=== PATIENT | female | born 1960 | race Caucasian/White ===

== ENCOUNTER → 2017-11-28 | Outpatient (CLI) | payer BC ==
[~2017-11-28] MED LIST: ACET500; ALBU90OI6; ALPR.25; ERGO50000; ESCI10; IBUP800; MULTI VITAMIN1 EACH; ROSU5
[2017-11-30 12:28] LABS: HPV Genotype 16 Not Detected (NOTDET); HPV Genotype 18 Not Detected (NOTDET)
[2017-12-05 13:31] LABS: HPV High Risk Other Not Detected (NOTDET)
== END | disposition home or self-care (01) ==
LOC: OLS 16:05
PROVIDERS: Obstetrics & Gynecology Gynecology
DX: Z12.4 Encounter for screening for malignant neoplasm of cervix (principal)
CPT/HCPCS: 87624; G0123

== ENCOUNTER → 2019-05-07 | Outpatient (CLI) | payer BC ==
[2019-05-09 15:07] LABS: HPV 16 Negative (Negative); HPV 18 Negative (Negative); HPV OTHER HR TYPES Negative (Negative)
== END | disposition home or self-care (01) ==
LOC: LAB SHORT 17:44 → LAB 17:44
PROVIDERS: Obstetrics & Gynecology Gynecology
DX: Z12.4 Encounter for screening for malignant neoplasm of cervix (principal)
CPT/HCPCS: 87624; G0123

== ENCOUNTER 2021-02-05 08:28 | Day surgery (SDC) | payer BC ==
[~2021-02-05] VITALS: Ht 170.2 cm; Wt 97.0 kg
[2021-02-05] MEDS ORDERED: Coq-1030 MG (08:51)
--- NOTE | 2021-02-05 09:03 | NUR ---
02/05/21 0903 SHIVAM ELY ONE ATTEMPT BY ALYCIA IN [place] ONE SUCCESSFUL BY ALYCIA IN [facility] PT TOW
--- NOTE | 2021-02-05 10:57 | NUR ---
02/05/21 1057 Margo Luevano DOCUMENTATION COMPLETED BY [email or web address]
== END 2021-02-05 10:57 | disposition home or self-care (01) ==
LOC: ORSCSDS 08:28
PROVIDERS: Internal Medicine Gastroenterology
PROC: 0DJD8ZZ Inspection of Lower Intestinal Tract, Via Natural or Artificial Opening Endoscopic (ICD-10-PCS; principal; 2021-02-05 09:45)
DX: Z12.11 Encounter for screening for malignant neoplasm of colon (principal); Z86.010 Personal history of colon polyps; K57.30 Diverticulosis of large intestine without perforation or abscess without bleeding; G47.30 Sleep apnea, unspecified; E66.9 Obesity, unspecified; Z68.33 Body mass index [BMI] 33.0-33.9, adult; Z79.899 Other long term (current) drug therapy
CPT/HCPCS: J2405; J2704; J7120

== ENCOUNTER 2023-06-13 06:40 | Day surgery (SDC) | payer MEDICARE, BC ==
[~2023-06-13] VITALS: Ht 170.2 cm; Wt 98.8 kg
[2023-06-13] VITALS (14 sets, daily range): BP systolic 109–154; BP diastolic 67–87
[~2023-06-13 06:40] MED LIST changes: +ALBU90OI INH; +Coq-1030 MG; +Crestor40 MG PO; +ESCI10 PO; +IBUP800 PO
--- NOTE | 2023-06-13 11:34 | NUR ---
PT ARRIVED TO THE ROOM AT 1125. PT ALERT AND ORIENTED. SHE DENIES PAIN. DECREASED SENSATION AND MOVEMENT TO BLE R/T SPINAL ANESTHESIA. PT TOLERATING PO AT THIS TIME.
--- NOTE | 2023-06-13 17:44 | NUR ---
SHIFT SUMMARY PT IS POD#0 FROM [facility] FLOR WITH DR. FRANCOIS. PAIN MANAGED WITH TYLENOL, TORADOL AND OXY. PT WAS ABLE TO WORK WITH THERAPY AND SHE WAS ABLE TO STAND AT THE EDGE OF BED. PT'S SPINAL ANESTHESIA IS SLOW TO WEAR OFF, SHE IS REGAINING SENSATION AND STRENGTH TO HER LOWER EXTREMITIES BUT WAS STILL WEAK WHEN WORKING WITH THERAPY. PT IS TOLERATING PO. SHE HAS BEEN ABLE TO VOID. PT IS RESTING IN BED, CALL LIGHT WITHIN REACH.
[2023-06-14 03:37] VITALS: BP 126/67
[2023-06-14 05:03] LABS: BASOPHILS ABSOLUTE AUTO 0.01 K/mm3 (0.00-0.23); BASOPHILS PERCENT AUTO 0 % (0-2); EOSINOPHILS PERCENT AUTO 0 % (0-6); Hematocrit 29.7 % (33.0-51.0); Hemoglobin 9.6 g/dL (11.5-16.0); IMMATURE GRAN ABSOLUTE AUTO 0.03 K/mm3 (0.00-0.10); IMMATURE GRAN PERCENT AUTO 0 % (0-1); LYMPHOCYTES ABSOLUTE AUTO 0.82 K/mm3 (0.84-5.20); LYMPHOCYTES PERCENT AUTO 9 % (21-46); MONOCYTES ABSOLUTE AUTO 0.75 K/mm3 (0.16-1.47); MONOCYTES PERCENT AUTO 8 % (4-13); Mean Corpuscular HGB 31.2 pg (26.0-34.0); Mean Corpuscular HGB Conc 32.3 g/dL (31.5-36.5); Mean Corpuscular Volume 96 fL (80-100); NEUTROPHILS PERCENT AUTO 82 % (41-73); Platelet Count 212 K/mm3 (150-400); RDW Coefficient Variation 13.3 % (11.7-14.2); RDW Standard Deviation 47.1 fL (35.1-46.3); Red Blood Cell Count 3.08 M/mm3 (3.80-5.20); White Blood Cell Count 9.01 K/mm3 (4.00-11.30)
[2023-06-14 05:35] LABS: Bun/Creatinine Ratio 21.8 (12.0-20.0); Calcium, Blood 8.9 mg/dL (8.5-10.1); Creatinine, Blood 0.69 mg/dL (0.40-1.00); Potassium, Blood 4.1 mmol/L (3.5-5.5)
--- NOTE | 2023-06-14 05:41 | NUR ---
SHIFT SUMMARY S/P L FLOR. RONELEL IS C/D/I. ICE IN PLACE AND LALITO HOSE ON. PATIENT IS AOX4. UP WITH 1 ASSIST, GB, AND FWW. VOIDING WELL. PAIN WELL MANAGED. TOLERATES PO INTAKE. PLAN FOR PT IN THE AM. VSS.
[2023-06-14 07:54] VITALS: BP 129/72
[2023-06-14] MEDS ORDERED: Aspir 8181 MG PO (08:18)
[2023-06-14] MEDS ORDERED: Percocet 5-3251 EACH PO (08:18)
--- NOTE | 2023-06-14 08:51 | NUR ---
DISCHARGE NOTE: PATIENT AND PATIENTS WERE EDUCATED ON DISCHARGE INSTRUCTIONS AND ALL OF THEM VERBALIZED UNDERSTANDING OF INSTRUCTIONS. THEY HAD NO FURTHER QUESTIONS AT THIS TIME. PAIN PERSCRIPTIONS WERE PLACED IN DISCHARGE FOLDER. PAIN IS MANAGED WITH ORAL PAIN MEDS. HER LEFT HIP HAS AN AQUACEL DRESSING THAT IS C/D/I. PATIENT DENIES NUMBNESS OR TINGLING IN ALL EXTREMITIES. SHE IS TOLERATING PO INTAKE AND IS VOIDING. SHE IS A SBA WITH FWW AND GAIT BELT. PATIENT HAS HER PERSONAL ITEMS IN THE ROOM GATHERED AND IS BEING WHEELCHAIRED OUT TO HER HUSBANDS CAR TO BE TAKEN HOME.
== END 2023-06-14 09:10 | disposition home or self-care (01) ==
LOC: ORSCMMR 06:40 → ORD 07:30 → ORSCMMR 07:30 → ORD 08:15 → SURS 11:18 → ORSCMMR 06-14 09:10
PROVIDERS: Orthopaedic Surgery
PROC: 0SRB0JZ Replacement of Left Hip Joint with Synthetic Substitute, Open Approach (ICD-10-PCS; principal; 2023-06-13 08:15)
DX: M16.12 Unilateral primary osteoarthritis, left hip (principal); E78.5 Hyperlipidemia, unspecified; G47.33 Obstructive sleep apnea (adult) (pediatric); Z79.899 Other long term (current) drug therapy; J45.909 Unspecified asthma, uncomplicated
CPT/HCPCS: 36415; 72170; 80048; 85025; 94660; 94762; 97110; 97116; 97161; 97530; A9270; C1776; J0171; J0690; J0735; J1100; J1885; J2250; J2371; J2405; J2704; J2795; J3010; J7120